=== PATIENT | male | born 2005 | race Caucasian/White ===

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

== ENCOUNTER 2023-06-25 08:29 | Emergency (ER) | payer BC, SELFPAY ==
[2023-06-25 08:30] VITALS: BP 141/93; PULSE 66; RESP 18; TEMP 36.4; O2SAT 99; BMI 21.3
--- NOTE | 2023-06-25 09:31 | RAD_ITS ---
STUDY: X-RAY - UNILATERAL RIBS ( LEFT ) WITH CHEST REASON FOR EXAM: Male, 17 years old. Left anterior lower rib pain following injury. TECHNIQUE - RIBS: 4 view(s) of the ribs. TECHNIQUE - CHEST: Single PA view of the chest. COMPARISON: None. FINDINGS - RIBS: Normal visualized ribs without a demonstrated fracture. FINDINGS - CHEST: The lungs are clear and expanded. There is no demonstrated pleural abnormality. Normal size heart. Normal mediastinum and dominik. Normal visualized pulmonary arteries. Normal visualized aortic arch and descending thoracic aorta. Normal visualized thoracic spine. Normal visualized ribs, clavicles, and shoulders. There is no demonstrated abnormality of the visualized soft tissue structures of the upper abdomen. RAD/Ribs Uni Min 3V w/PA Chest IMPRESSION: RIBS: Normal x-ray examination of the ribs. CHEST: Normal x-ray examination of the chest. Electronically Signed: Nate Brown MD at 10:11 EST ,
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
[2023-06-25] MEDS: Lidocaine 5% Patch 1 PATCH TOPICAL (09:41)
[2023-06-25] MEDS: Naproxen 500 MG Tablet PO (09:41)
[2023-06-25 11:23] VITALS: BP 118/77; PULSE 72; RESP 14
== END 2023-06-25 11:24 | disposition home or self-care (01) ==
PROVIDERS: Emergency Provider Student in an Organized Health Care Education/Training Program; PCP Family Medicine; Visit Provider Student in an Organized Health Care Education/Training Program
DX: S20.20XA Contusion of thorax, unspecified, initial encounter (principal); V49.50XA Passenger injured in collision with unspecified motor vehicles in traffic accident, initial encounter; Y92.410 Unspecified street and highway as the place of occurrence of the external cause
CPT/HCPCS: 71101; 99282

== ENCOUNTER 2023-10-06 01:25 | Emergency (ER) | payer BC, SELFPAY ==
[2023-10-06 01:26] VITALS: BP 130/95; PULSE 76; RESP 18; TEMP 36.1; O2SAT 100; BMI 21.7
[2023-10-06 02:40] VITALS: BP 139/78; PULSE 78; RESP 16; TEMP 36.6; O2SAT 99
--- NOTE | 2023-10-06 02:47 | EX.ED.DYSGE1 ---
HPI History of Present Illness Chief Complaint: Anxiety Informant: patient Narrative Narrative: Patient is a 18-year-old male who reports past medical history of anxiety and asthma. 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 He states that he received a new patient today who was very difficult to deal with. He states based on this added stress he developed increasing anxiety and it made it difficult to cope with his current situation. He denies any homicidal or suicidal ideation but based on the worsening anxiety comes in for evaluation [facility] Medical History (Updated 10/06/23 @ 02:[address] Rafael Jaime, DO) Anxiety Physical exam, pre-employment Asthma Home Medications ?Medication ?Instructions ?Recorded ?Last Taken ?Type bupropion HCl 150 mg 24 hr tablet, 150 mg PO DAILY 30 days #30 tabs 10/06/23 Unknown Rx extended release (Wellbutrin XL) Allergy/AdvReac Type Severity Reaction Status Date / Time No Known Allergies Allergy Verified 10/06/23 01:26 Social History Smoking Status: Never smoker alcohol intake: never ROS ROS ED Constitutional Constitutional ED: Denies chills or fever(s) Eyes Eyes: Denies change in vision ENT ENT ED: Denies sore throat Cardiovascular Cardiovascular: Denies chest pain Respiratory/Chest Respiratory/Chest: Denies cough or dyspnea Gastrointestinal Gastrointestinal: Denies abdominal pain, diarrhea, nausea or vomiting Genitourinary Genitourinary ED: Denies dysuria Musculoskeletal Musculoskeletal: Denies myalgias Integumentary Denies rash Neurologic Neurologic: Denies headache(s) Psychiatric Psychiatric: Reports anxiety; Denies suicidal ideation or suicidal thoughts Hematologic/Lymphatic Hematologic/Lymphatic: Denies easy bleeding or easy bruising EXAM Physical Exam Const Vital Signs: 10/06/23 01:26 10/06/23 02:40 Temperature 97 F L 97.9 F Temperature Source Temporal Pulse Rate 76 78 Respiratory Rate 18 16 Blood Pressure 130/95 H 139/78 H Blood Pressure Mean 106 98 Pulse Ox 100 99 Positive well nourished and well developed General Appearance ED: well developed; Negative for pallor HEENT HEENT Narrative: Normocephalic atraumatic Eyes PERRL and EOMs intact bilaterally General Eye ED: Negative for scleral icterus Neck supple Neck Narrative: No nuchal rigidity or meningeal signs Resp normal respiratory effort and clear to auscultation bilaterally Cardio regular rate and regular rhythm Extremity normal to inspection Neuro oriented x3, CN's II-XII intact bilaterally and no sensory deficits noted Sensorium / Orientation: alert Motor Exam: strength 5/5 throughout Psych Psych Narrative: Patient has a nervous/anxious affect No homicidal or suicidal ideation Skin no rashes or lesions noted, no wounds and skin turgor normal General Skin Exam: Negative for jaundice or pallor MDM MDM MDM Narrative Medical decision making narrative: Patient arrived to the ER mildly hypertensive otherwise with stable vitals. He reported breakthrough anxiety while at work today secondary to a stressful situation. He denied any homicidal or suicidal ideations I do not feel there is need for a psychiatric workup or pink. However I did feel he would benefit from resources and therefore crisis center was contacted and they did come to the hospital to evaluate the patient. After speaking with him they agree that he is not a threat to himself or others and would benefit from outpatient therapy but not inpatient. The patient states he has tried Lexapro/SSRIs in the past with side effects such as nausea and vomiting and therefore this time we will try a prescription for Wellbutrin XL. However as the patient is not manic he is not homicidal or suicidal and has no focal findings on exam there is no need for further workup and he is otherwise safe for discharge History & Record Review Discussion w/independent historian: Patient Management Discussion w/another healthcare provider: Behavioral health Discharge Plan Triage Chief Complaint: Anxiety ED Provider: Rafael Jaime Dx/Rx/DC Orders Clinical Impression: Anxiety, Asthma Instructions: Understanding Anxiety Disorders, ED Anxiety Reaction Prescriptions: New bupropion HCl [Wellbutrin XL] 150 mg tablet extended release 24 hr 150 mg PO DAILY 30 Days Qty: 30 1RF Stand Alone Forms: ED Work / School Excuse Primary Care Provider: Liliya Auguste Referrals: Liliya Auguste MD [Primary Care Provider] - Activity Restrictions/Additional Instructions: Please follow-up as directed by crisis center and begin taking the Wellbutrin once daily as directed to help control further anxiety symptoms. Return to the ER should you have any further concerns Print Language: Upper Sorbian Disposition Disposition: Home, Self Care Discharge Date/Time: 10/06/23 02:54
== END 2023-10-06 02:54 | disposition home or self-care (01) ==
PROVIDERS: Emergency Provider Emergency Medicine; PCP Family Medicine; Visit Provider Emergency Medicine
DX: F41.9 Anxiety disorder, unspecified (principal); J45.909 Unspecified asthma, uncomplicated
CPT/HCPCS: 99282